=== PATIENT | male | born 1960 | race Caucasian/White ===

== ENCOUNTER 2016-06-15 05:43 | Inpatient (IN) | payer BC, OTHER ==
[2016-05-31 14:35] VITALS: BMI 37.0
--- NOTE | 2016-05-31 14:57 | PAT Medication Instructions ---
Service Date May 31, 2016. Current Home Medication List Alfuzosin Hcl (Uroxatral), 10 MG PO QAM Finasteride (Proscar), 5 MG PO QAM Lisinopril/Hctz (Zestoretic 20MG/12.5MG), 1 TAB PO QAM Metformin Hcl (Glucophage), 500 MG PO BID Multivitamin (Multivitamin), 1 TAB PO QAM Medication Instructions For Your Scheduled Surgery - Hold the following medications 48 hours prior to surgery: Metformin Hcl (Glucophage), 500 MG PO BID - Hold the following medications the morning of surgery: Multivitamin (Multivitamin), 1 TAB PO QAM Lisinopril/Hctz (Zestoretic 20MG/12.5MG), 1 TAB PO QAM - Take the following medications the morning of surgery with a sip of water OTHERWISE NOTHING TO EAT OR DRINK AFTER MIDNIGHT: Alfuzosin Hcl (Uroxatral), 10 MG PO QAM Finasteride (Proscar), 5 MG PO QAM If you have any questions please call us at [phone] or [phone] or [phone]
[2016-05-31 15:41] LABS: URINE APPEARANCE CLEAR (CLEAR); URINE BILIRUBIN NEG (NEG); URINE COLOR YELLOW; URINE NITRITE NEG (NEG); URINE SPECIFIC GRAVITY 1.019 (1.000-1.030); UROBILINOGEN NEG (NEG)
[2016-05-31 15:54] LABS: MANUAL MICROSCOPIC REQUIRED? NO; REVIEW REQ? NO
[2016-05-31 15:57] LABS: BUN/CREATININE RATIO 19.4 (10-20); CALCIUM 9.5 mg/dl (8.5-10.1); CREATININE 0.92 mg/dl (0.60-1.40); POTASSIUM 3.7 mmol/L (3.5-5.1)
[2016-05-31 16:05] LABS: BASO % 0.4 %; BASO ABS # 0.03 K/uL (0-0.2); COMPLETE YES; EOS % 1.5 %; IG% 0.6 %; LYMPH % 28.2 %; LYMPH ABS # 2.01 K/uL (1.2-3.4); MEAN CELL VOLUME 91.5 fL (80-100); MEAN CORPUSCULAR HEMOGLOBIN 32.7 pg (25-34); MEAN CORPUSCULAR HGB CONC 35.7 g/dl (32-36); MEAN PLATELET VOLUME 11.5 fL (7.4-10.4); NEUT % 61.3 %; PLATELET COUNT 168 K/uL (130-400); RED BLOOD COUNT 4.59 M/uL (4.7-6.1); WHITE BLOOD COUNT 7.13 K/uL (4.8-10.8)
[~2016-06-15] VITALS: Ht 177.8 cm; Wt 118.9 kg
[2016-06-15] VITALS (10 sets, daily range): BP systolic 108–141; BP diastolic 62–83; PULSE 84–108; TEMP 36.5–37; O2SAT 93–98; Ht 177.8 cm; Wt 118.9 kg
[~2016-06-15 05:43] MED LIST: ALFU10TA30 PO; FINA5TAB PO; GLC/500 PO; LISI-787 PO; MULT-506 PO
[2016-06-15] MEDS ORDERED: CEFAZOLIN 2000 MG/60 ML D5W IV SCH (06:00)
[2016-06-15] MEDS ORDERED: LACTATED RINGER'S 1000ML 500 ML IV ONE (06:00)
[2016-06-15] MEDS ORDERED: LACTATED RINGER'S 1000ML 1,000 ML IV SCH ×2 (06:00)
[2016-06-15] MEDS ORDERED: HEPARIN SOD 5000 UNIT/0.5 ML CARP SQ SCH (06:00)
[2016-06-15] MEDS ORDERED: MIDAZOLAM HCL 1 MG/ML 2ML VIAL ONE (06:38)
[2016-06-15] MEDS ORDERED: LIDOCAINE HCL 2% 2 ML VIAL (20MG/ML) ONE (06:38)
[2016-06-15] MEDS ORDERED: FENTANYL CITRATE INJ 50 MCG/1 ML 2 ML VIAL ONE (06:38)
[2016-06-15] MEDS ORDERED: ONDANSETRON INJ 2 MG/ML 2 ML VIAL ONE ×2 (06:38→10:43)
[2016-06-15] MEDS ORDERED: ROCURONIUM BROMIDE 10 MG/ML 5 ML VIAL ONE ×2 (06:38→10:14)
[2016-06-15] MEDS ORDERED: DEXAMETHASONE SOD INJ 4 MG/ML VIAL ONE (06:38)
[2016-06-15] MEDS ORDERED: BUPIVACAINE 0.5 % 5 MG/1 ML MPF 30ML VIAL ONE (06:53)
--- NOTE | 2016-06-15 07:09 | History & Physical Bridge Note ---
H&P Re-Evaluation Bridge Note: I have examined the patient, reviewed the History & Physical and in the interval since the performance of the History & Physical I have noted the following changes of clinical significance: No changes noted
[2016-06-15] MEDS ORDERED: PHENYLEPHRINE 100MCG/ML 5ML SYR IV PRN (07:15)
[2016-06-15] MEDS ORDERED: EpHEDrine SULFATE INJ 50 MG/ML AMP IV PRN (07:15)
[2016-06-15] MEDS ORDERED: ONDANSETRON INJ 2 MG/ML 2 ML VIAL IV PRN ×2 (07:15→11:15)
[2016-06-15] MEDS ORDERED: ATROPINE SULFATE 0.1 MG/ML 5ML SYR IV PRN (07:15)
[2016-06-15] MEDS ORDERED: HYDROmorphone INJ 2 MG/ML SYR/VIAL IV PRN (07:15)
[2016-06-15] MEDS ORDERED: EpHEDrine SULFATE INJ 50 MG/ML AMP ONE (08:28)
[2016-06-15] MEDS ORDERED: EpHEDrine SULFATE 50MG/5ML SYR ONE ×2 (08:28→10:43)
[2016-06-15] MEDS ORDERED: MoRPHine SULFATE PF 1 MG/ML 10 ML AMP/VIAL ONE (09:56)
[2016-06-15] MEDS ORDERED: FLOSEAL HEMOSTATIC MATRIX 10ML TOP ONE (10:30)
[2016-06-15] MEDS ORDERED: SURGICEL ABSORB HEMOSTAT 2IN X 14IN TOP ONE (10:30)
[2016-06-15] MEDS ORDERED: GLYCOPYRROLATE INJ 0.2 MG/ML VIAL ONE (10:43)
--- NOTE | 2016-06-15 11:08 | [facility] Post Operative Brief Note ---
Immediate Operative Summary Operative Date Jun 15, 2016. Pre-Operative Diagnosis cT1c Reny 3+3 Prostate Cancer Post-Operative Diagnosis Same as preop Procedure(s) Performed Laparoscopic Radical Retropubic Prostatectomy Robot Assist Surgeon Dr. Rachel Boyce Mathematics Professor Surgeon(s) Celeste Raines PA-C Estimated Blood Loss 150 ml Findings Watertight anastomosis, ? residual tissue at apex resected Specimens A. Prostate and Seminal Vesicles B. Periprostatic Fat C. Apical Margin D. Bladder Neck Margin Drains 18 fr fischer, 10 cc, #10 BRISEYDA drain Anesthesia GAET + local Complication(s) None Disposition Recovery Room / PACU
[2016-06-15] MEDS ORDERED: KETOROLAC TROMETHAMINE 15 MG/ML VIAL IV PRN (11:15)
[2016-06-15] MEDS ORDERED: HYDROmorphone INJ 1 MG/ML SYR IV PRN (11:15)
[2016-06-15] MEDS ORDERED: OXYCODONE/ACETAMINOPHEN 7.5-325 TAB PO PRN (11:15)
[2016-06-15] MEDS ORDERED: OXYBUTYNIN CHLORIDE 5 MG TAB PO PRN (11:15)
[2016-06-15] MEDS ORDERED: PHARMACY GLYCEMIC MGMT CONSULT SCH (11:35)
[2016-06-15 11:36] LABS: HEMATOCRIT 40.4 % (42-52); MEAN CELL VOLUME 91.2 fL (80-100); MEAN CORPUSCULAR HEMOGLOBIN 33.4 pg (25-34); MEAN PLATELET VOLUME 11.4 fL (7.4-10.4); PLATELET COUNT 154 K/uL (130-400); RED BLOOD COUNT 4.43 M/uL (4.7-6.1); WHITE BLOOD COUNT 9.49 K/uL (4.8-10.8)
[2016-06-15 11:40] LABS: MEAN CORPUSCULAR HGB CONC 36.6 g/dl (32-36)
--- NOTE | 2016-06-15 11:54 | OPERATIVE REPORT ---
DATE OF OPERATION: 06/15/2016 PREOPERATIVE DIAGNOSIS: [place] 3+3 prostate cancer. POSTOPERATIVE DIAGNOSIS: Same. PROCEDURE: Robot-assisted laparoscopic radical retropubic prostatectomy with bilateral nerve sparing dissection. SURGEON: Dr. Ever Boyce. CLINICAL WRITER: ANDREWS Rondon. ANESTHESIA: General anesthesia with endotracheal intubation plus local at port sites. ESTIMATED BLOOD LOSS: 150 mL. IV FLUIDS: 2 liters of crystalloid. FINDINGS: Watertight anastomosis with bilateral nerve sparing dissection, questionable capsular violation on the level of the right apex reresected to ensure a negative margin. DRAINS LEFT IN PLACE: Include an 18 Estonian Aguirre catheter to gravity drainage and #10 BRISEYDA drain in the left lower quadrant. SPECIMENS SENT TO PATHOLOGY: Periprostatic fat, prostate plus seminal vesicles, apical margin tissue and bladder neck margin. BRIEF HISTORY: Mr. Garcia is a pleasant 56-year-old male with a history of low grade Reny 3+3 prostate cancer who entered an active surveillance protocol over the summer of 2014. His repeat 1-year anniversary biopsy demonstrated continued low grade disease but in greater amounts. After discussion of risks and benefits of various forms of management, he has decided upon a robotic prostatectomy to manage his disease. Please see H\T\P for further details. Intravenous cephalosporins were provided for antibiotic coverage and subcutaneous heparin as well as SCDs for DVT prophylaxis. PROCEDURE: The patient was properly identified and brought to the operative suite. After identification and appropriate consent on the chart, general anesthesia with endotracheal intubation was initiated. The patient was prepped and draped in standard fashion for this procedure. methods time analyst-out procedure was followed. All port sites were anesthetized with local prior to incision. Supraumbilical port was made and abdomen was entered under direct visualization using a 0 degree lens and visual obturator. Abdomen was insufflated to 15 mmHg and ports were placed for a 4th arm robotic template including 2 left-sided 7 mm ports, 1 right-sided 7 mm port and a 5 and 12 mm team assistant port. Bladder was dropped down to the level of the pubic bone and prostate was defatted. The fat was removed and sent for pathologic analysis. Endopelvic fascia was sharply entered on both sides and a wide dorsal venous complex was skeletonized. This was controlled using 0 Vicryl suture on a CT1 needle in a [id number] fashion. Nerve sparing dissection was initiated on both sides laterally and up toward the level of the apex. A 30 degree down lens was then placed and attention was turned to the bladder neck. This was placed on traction using the 4th arm and bluntly dissected down to the level of the Aguirre catheter. The patient was noted to have significant trilobar hypertrophy, lateral greater than median which required extra caution at the time of dissection to avoid a widely spatulated bladder neck. Methylene blue was provided for identification of the ureteral orifices, which were noted to be well removed from the plane of dissection. After the prostatic hypertrophy was bypassed the bladder were neck was dropped at its posterior aspect in the midline down to the level of the seminal vesicles and vas deferens in the midline. The bladder and prostatic pedicles were controlled using bipolar and Weck clips as necessary. Care being taken to avoid any violation of the bladder with a Weck clip in place. No evidence of bladder perforation or other significant worrisome abnormalities were appreciated. Some thinned out mucosa at the level of the bladder neck was removed and sent as bladder neck margin. Bladder neck aperture was sufficiently small to not require reconstruction. After the pedicles had been somewhat released the vas deferens was circumscribed and divided in the midline. The seminal vesicles were dissected free in their entirety. Of note, thickened tissue in all planes surrounding the prostate gland, likely due to longstanding BPH was appreciated. Cold scissors were used to drop the rectum in the midline up to the level of the apex of the prostate and a nerve sparing dissection was carried out on both sides. Again, friable tissue at the level of the neurovascular bundles was noted. After the dissection had been carried up to its limited level of the apex attention was turned to the dorsal venous complex which was divided using hot scissors. Urethra was skeletonized. The apex of the prostate was noted to be inflamed and impacted around the area of the urethra and cautious dissection was required to separate the apex of the urethra, the urethra itself and the dorsal venous complex. After this was completed, a question of capsular violation on the right anterior prostate was appreciated. Rectourethralis fibers were divided as well as the remaining nerve sparing dissection was carried out. Prostate was removed from the pelvis and inspected. There was again a question of capsular violation. Some suspicious tissue at the level of the apex around the urethra was divided free until a clean urethra, dorsal vein, rectourethralis and pelvic structures were appreciated. This was sent as an apical margin and was felt likely to represent the residual tissue from the prostate. After this was complete, good hemostasis was appreciated at the level of the pelvis. No other residual abnormal tissue was appreciated. Prostate had been placed within an EndoCatch bag for retrieval at the end of the case once it was dissected free. A circumferential running anastomosis using a double armed V-Loc suture was performed excellent apposition of the urethra and bladder neck. Again, ureters were noted to be well removed from the area of dissection. In the anterior aspect a small gap in the bladder neck was oversewn. The 18 Estonian silicone Aguirre catheter was visualized entering the bladder prior to completion of closure. Ten mL of sterile water were placed in the balloon. This was irrigated with greater than 120 mL of sterile irrigant with no evidence of leaks. Of note, prior to completion of the patient's closure the rectum was insufflated under saline irrigation with no evidence of any rectal injury. The FloSeal tissue sealant was placed on the lateral aspects of the dissection for additional hemostasis. Fourth arm was removed and #10 BRISEYDA drain was brought in via the fourth arm port. This was placed within the pelvis while avoiding placing it directly over the anastomosis. Robotic instruments were removed and the robot was dedocked. The string to the EndoCatch bag was brought up through the supraumbilical port. This was enlarged sufficiently to allow for removal of the specimen bag without resistance. Ports were removed and the supraumbilical incision was closed using 0 Vicryl suture on a UR-6 needle. Drain was secured in place using a 2-0 silk. Monocryl was used at the level of the skin as well as Dermabond dressings. BRISEYDA was placed to bulb suction. Anesthesia was reversed and the patient was transferred to recovery room in stable condition. FOLLOW-UP CARE: The patient will be admitted to the floor for standard postoperative management. I attest to the content of the Intraoperative Record and any orders documented therein. Any exceptio ns are noted below.
[2016-06-15 12:00] LABS: BUN/CREATININE RATIO 13.1 (10-20); CALCIUM 8.7 mg/dl (8.5-10.1); POTASSIUM 3.5 mmol/L (3.5-5.1)
--- NOTE | 2016-06-15 12:44 | Pharmacy Progress Note ---
Glycemic Control Intl Consult Date of Service Jun 15, 2016. Scope Glycemic Pharmacist consulted by ANDREWS Boyer on 06/15/16 for glycemic control and to write orders per [facility] inpatient glycemic control protocol Objective Weight (Kilograms): 118.900 Accuchecks BSG (last 24hrs): Test 06/15/16 06:01 06/15/16 11:15 06/15/16 11:28 Bedside Glucose 114 mg/dl (70-99) 133 mg/dl (70-99) Random Glucose 145 mg/dl (70-99) Laboratory Data (last 24hrs) Test 06/15/16 11:28 Anion Gap 7.0 mmol/L BUN/Creatinine Ratio 13.1 Blood Urea Nitrogen 13 mg/dl Creatinine 1.00 mg/dl Potassium Level 3.5 mmol/L Sodium Level 135 mmol/L White Blood Count 9.49 K/uL Recent Pertinent Medications Outpatient Anti-diabetic Regimen: * Metformin 500mg BIDM * No A1c to evaluate. Will order with tomorrow's AM labs. Risk Factors for Insulin Resistance: * Steroids: DXM 8mg IV intraop * Infection: Ancef periop, surgical prophylaxis * IVF:LR at 125 ml/hr * Recent Surgery: POD0, s/p prostatectomy * Diet: clears Assessment & Plan ASSESSMENT: * ADA & AACE recommend a goal blood sugar range 140-180 mg/dl for the majority of critically ill & non-critically ill patients. However, more stringent targets may be selected in individual cases. * 56 yo male with prostate CA admitted today s/p prostatectomy done by Dr. Boyce. * He is on Metformin as an outpatient. No A1c on file to evaluate level of control on this regimen. Will place Metformin on hold during admission d/t increased risk for drug interactions, difficulty titrating, and variability of acute setting. * Consider restarting 1-2 days prior to discharge to aid in transition back to home DM regimen. * Pt was given a single dose of DXM IV intraoperatively which may lead to hyperglycemia subsequently. * AM fasting BSG was 114 mg/dl. I suspect this pt will respond nicely to insulin therapy. I am not convinced he will require basal insulin, however, with DXM on board he may require a single dose to combat long acting steroid. I do not suspect ongoing basal insulin will be necessary. * Will initiate Novolog considering weight based dosing. PLAN FOR INPATIENT GLYCEMIC CONTROL: * Start Lantus x 1 this evening: * BSG 180 mg/dl and below: 0 units * BSG 181 mg/dl and above: 12 units * Novolog ACHS * Start correction factor of 25 mg/dl/unit * Start carb ratio of 1 unit per 10 grams CHO consumed * Set goal range to Low 140 mg/dL - High 180 mg/dL * Please note that the plan above was derived based on current level of insulin resistance and hospital stress. These recommendations are appropriate for inpatient admission only. Plan of care upon discharge will need to be reassessed to avoid potential outpatient hypo/hyperglycemia. Thank you.
[2016-06-15] MEDS ORDERED: DEXTROSE 50% 50 ML SYR IV PRN (13:00)
[2016-06-15] MEDS ORDERED: GLUCAGON FOR INJ 1 MG VIAL SQ PRN (13:00)
[2016-06-15] MEDS ORDERED: GLUCOSE 10 TABS/TUBE PO PRN (13:00)
[2016-06-15] MEDS: INSULIN ASPART 100 UNITS/ML 3 ML PEN SC SCH ×3 (13:00→20:52)
[2016-06-15] MEDS ORDERED: GLUCOSE 40% GEL 15 GM TUBE PO PRN (13:00)
--- NOTE | 2016-06-15 13:12 | Anesthesiology Progress Note ---
Anesthesia Post Op Note Date & Time Jun 15, 2016 at 13:12 Vital Signs Pain Intensity: 0.0 Vital Signs Past 12 Hours Date Time Temp Pulse Resp B/P Pulse Ox O2 Delivery O2 Flow Rate FiO2 06/15/16 12:42 99 16 113/67 97 Nasal Cannula 2.0 06/15/16 12:15 98 Nasal Cannula 2.0 06/15/16 12:15 Nasal Cannula 2.0 06/15/16 12:15 36.6 93 16 121/74 98 Nasal Cannula 2.0 06/15/16 12:00 37 94 20 121/71 97 Nasal Cannula 2 Mask 06/15/16 11:50 36.8 93 20 118/73 97 Nasal Cannula 2 Mask 06/15/16 11:40 97 20 116/79 97 Nasal Cannula 2 06/15/16 11:30 96 20 117/67 99 Mask 10 06/15/16 11:20 101 20 105/59 99 Mask 10 06/15/16 11:13 36.1 100 14 103/67 97 Mask 10 06/15/16 06:15 36.7 102 22 141/83 93 Room Air Notes Mental Status: alert / awake / arousable, participated in evaluation Pt Amnestic to Procedure: Yes Nausea / Vomiting: adequately controlled Pain: adequately controlled Airway Patency, RR, SpO2: stable & adequate BP & HR: stable & adequate Hydration State: stable & adequate Anesthetic Complications: no major complications apparent
[2016-06-15] MEDS ORDERED: PNEUMOCOCCAL POLYSACCHARIDES 25 MCG/0.5 ML VIAL/SYR IM. ONE (13:45)
[2016-06-15] MEDS ORDERED: PNEUMOCOCCAL ADMINISTRATION CHARGE ONE (13:45)
[2016-06-15] MEDS: LACTATED RINGER'S 1000ML 1,000 ML IV SCH ×2 (13:52→18:02)
[2016-06-15] MEDS ORDERED: ACETAMINOPHEN 500 MG TAB PO SCH (14:00)
[2016-06-15] MEDS: CEFAZOLIN IV 2,000 MG in DEXTROSE 5% 50ML 50 ML IV SCH ×2 (15:37→23:26)
[2016-06-15] MEDS ORDERED: LANTUS PER UNIT CHARGE SQ SCH (17:00)
[2016-06-15] MEDS: DOCUSATE SODIUM 100 MG CAP PO SCH (20:52)
[2016-06-15] MEDS: HEPARIN SOD 5000 UNIT/0.5 ML CARP SQ SCH (20:55)
[2016-06-16] MEDS: LACTATED RINGER'S 1000ML 1,000 ML IV SCH (02:17)
[2016-06-16 03:25] VITALS: BP 118/74; PULSE 79; TEMP 36.9; O2SAT 93
[2016-06-16 07:10] LABS: BASO % 0.1 %; BASO ABS # 0.01 K/uL (0-0.2); COMPLETE YES; EOS % 0.4 %; HEMATOCRIT 39.9 % (42-52); IG% 0.2 %; LYMPH % 17.6 %; LYMPH ABS # 1.75 K/uL (1.2-3.4); MEAN CELL VOLUME 92.8 fL (80-100); MEAN CORPUSCULAR HEMOGLOBIN 32.3 pg (25-34); MEAN CORPUSCULAR HGB CONC 34.8 g/dl (32-36); MEAN PLATELET VOLUME 11.5 fL (7.4-10.4); MONO % 7.6 %; NEUT % 74.1 %; PLATELET COUNT 172 K/uL (130-400); WHITE BLOOD COUNT 9.96 K/uL (4.8-10.8)
[2016-06-16 07:30] VITALS: BP 110/71; PULSE 78; TEMP 37; O2SAT 96
[2016-06-16 07:42] LABS: BUN/CREATININE RATIO 11.8 (10-20); CALCIUM 8.7 mg/dl (8.5-10.1); CREATININE 0.85 mg/dl (0.60-1.40)
[2016-06-16 07:43] LABS: POTASSIUM 4.2 mmol/L (3.5-5.1)
[2016-06-16 08:06] VITALS: BP_SYST 118; BP_DIAS 81; BP_DIAS 88; PULSE 83; TEMP 36.8; O2SAT 95
[2016-06-16 08:07] LABS: ESTIMATED AVERAGE GLUCOSE 114 mg/dl; HA1C FLAG Normal (Normal)
[2016-06-16] MEDS: CEFAZOLIN IV 2,000 MG in DEXTROSE 5% 50ML 50 ML IV SCH (08:17)
[2016-06-16] MEDS: DOCUSATE SODIUM 100 MG CAP PO SCH (08:44)
[2016-06-16] MEDS: HEPARIN SOD 5000 UNIT/0.5 ML CARP SQ SCH (08:56)
[2016-06-16] MEDS ORDERED: LISINOPRIL/HCTZ 20/12.5MG TAB PO SCH (09:00)
[2016-06-16 09:55] VITALS: O2SAT 95
[2016-06-16] MEDS: INSULIN ASPART 100 UNITS/ML 3 ML PEN SC SCH ×2 (10:17→12:00)
--- NOTE | 2016-06-16 10:22 | Progress Note ---
Subjective Date of Service: Jun 16, 2016. Subjective Pt evaluation today including: conversation w/ patient, physical exam, chart review Voiding: fischer catheter in place 56 year old male with prostate cancer- s/p RALP. He is doing well post op Ambulating in hallway. Tolerating diet. BRISEYDA intact draining small amounts. Fischer intact- draining clear yellow urine. Abdominal incisions look well. AFVSS. Hemodynamically stable. Review of Systems Constitutional: No chills, No fever Eyes: No worsening of vision ENT: No hearing loss Respiratory: No cough, No dyspnea on exertion, No shortness of breath, No wheezing Cardiac: No chest pain Abdomen: No nausea, No pain, No vomiting Male : + see HPI Neurologic: No memory loss Psychiatric: No depression symptoms Heme: No abnormal bleeding/bruising Endo: No fatigue Skin: No rash Objective Vital Signs Date Time Temp Pulse Resp B/P Pulse Ox O2 Delivery O2 Flow Rate FiO2 06/16/16 09:55 95 Room Air 06/16/16 08:06 36.8 83 19 118/81 95 Room Air 118/88 06/16/16 07:30 37.0 78 16 110/71 96 Room Air 06/16/16 07:10 Room Air 06/16/16 03:25 36.9 79 14 118/74 93 Room Air 06/15/16 23:28 95 Room Air 06/15/16 23:23 37.0 86 14 126/73 95 Room Air 06/15/16 19:12 36.9 108 18 118/68 97 Room Air 06/15/16 16:30 97 Nasal Cannula 2.0 06/15/16 15:13 36.5 107 16 118/83 97 Nasal Cannula 2.0 06/15/16 14:10 84 18 117/77 98 Nasal Cannula 2.0 06/15/16 13:15 98 18 108/62 97 Nasal Cannula 2.0 06/15/16 12:42 99 16 113/67 97 Nasal Cannula 2.0 06/15/16 12:15 98 Nasal Cannula 2.0 06/15/16 12:15 Nasal Cannula 2.0 06/15/16 12:15 36.6 93 16 121/74 98 Nasal Cannula 2.0 06/15/16 12:00 37 94 20 121/71 97 Nasal Cannula 2 Mask 06/15/16 11:50 36.8 93 20 118/73 97 Nasal Cannula 2 Mask 06/15/16 11:40 97 20 116/79 97 Nasal Cannula 2 06/15/16 11:30 96 20 117/67 99 Mask 10 06/15/16 11:20 101 20 105/59 99 Mask 10 06/15/16 11:13 36.1 100 14 103/67 97 Mask 10 Physical Exam General Appearance: WD/WN, no apparent distress Eyes: normal inspection ENT: hearing grossly normal Neck: no JVD Respiratory/Chest: no respiratory distress, no accessory muscle use Extremities: normal range of motion, normal inspection, no pedal edema, no calf tenderness Neurologic/Psychiatric: alert, normal mood/affect, oriented x 3 Skin: normal color, warm/dry, no rash Laboratory Results Last 24 Hours Test 06/15/16 11:15 06/15/16 11:28 06/15/16 12:52 06/15/16 16:40 Bedside Glucose 133 mg/dl 137 mg/dl 132 mg/dl White Blood Count 9.49 K/uL Red Blood Count 4.43 M/uL Hemoglobin 14.8 g/dL Hematocrit 40.4 % Mean Corpuscular Volume 91.2 fL Mean Corpuscular Hemoglobin 33.4 pg Mean Corpuscular Hemoglobin Concent 36.6 g/dl RDW Standard Deviation 42.2 fL RDW Coefficient of Variation 12.7 % Platelet Count 154 K/uL Mean Platelet Volume 11.4 fL Sodium Level 135 mmol/L Potassium Level 3.5 mmol/L Chloride Level 99 mmol/L Carbon Dioxide Level 29 mmol/L Anion Gap 7.0 mmol/L Blood Urea Nitrogen 13 mg/dl Creatinine 1.00 mg/dl Est Creatinine Clear Calc Drug Dose 107.9 ml/min Estimated GFR () 97.8 Estimated GFR (Non- 84.4 BUN/Creatinine Ratio 13.1 Random Glucose 145 mg/dl Calcium Level 8.7 mg/dl Test 06/15/16 20:33 06/16/16 06:33 06/16/16 08:15 Bedside Glucose 147 mg/dl 122 mg/dl White Blood Count 9.96 K/uL Red Blood Count 4.30 M/uL Hemoglobin 13.9 g/dL Hematocrit 39.9 % Mean Corpuscular Volume 92.8 fL Mean Corpuscular Hemoglobin 32.3 pg Mean Corpuscular Hemoglobin Concent 34.8 g/dl Platelet Count 172 K/uL Mean Platelet Volume 11.5 fL Neutrophils (%) (Auto) 74.1 % Lymphocytes (%) (Auto) 17.6 % Monocytes (%) (Auto) 7.6 % Eosinophils (%) (Auto) 0.4 % Basophils (%) (Auto) 0.1 % Neutrophils # (Auto) 7.38 K/uL Lymphocytes # (Auto) 1.75 K/uL Monocytes # (Auto) 0.76 K/uL Eosinophils # (Auto) 0.04 K/uL Basophils # (Auto) 0.01 K/uL RDW Standard Deviation 44.0 fL RDW Coefficient of Variation 12.9 % Immature Granulocyte % (Auto) 0.2 % Immature Granulocyte # (Auto) 0.02 K/uL Sodium Level 137 mmol/L Potassium Level 4.2 mmol/L Chloride Level 100 mmol/L Carbon Dioxide Level 30 mmol/L Anion Gap 7.0 mmol/L Blood Urea Nitrogen 10 mg/dl Creatinine 0.85 mg/dl Est Creatinine Clear Calc Drug Dose 126.9 ml/min Estimated GFR () 113.7 Estimated GFR (Non- 98.1 BUN/Creatinine Ratio 11.8 Random Glucose 113 mg/dl Estimated Average Glucose 114 mg/dl Hemoglobin A1c 5.6 % Calcium Level 8.7 mg/dl Assessment and Plan s/p RALP He is doing well post op. Plan for d/c after lunch if he is tolerating po well. D/C BRISEYDA and IVF after lunch prior to discharge. Scripts on chart for Cipro, oxybutynin, percocet, and colace.
[2016-06-16] MEDS ORDERED: DTR5 PO (10:26)
[2016-06-16] MEDS ORDERED: CLC100 PO (10:26)
[2016-06-16] MEDS ORDERED: CIPR-255 PO (10:26)
[2016-06-16] MEDS ORDERED: OXYC7.5T62 PO (10:26)
--- NOTE | 2016-06-16 10:28 | Discharge Instructions ---
Discharge Instructions Admission Reason for Admission: Prostate Cancer Discharge Discharge Diagnosis / Problem: Prostate Cancer Discharge Goals Goal(s): Decrease discomfort, Improve function, Prevent Disease Progression Activity Recommendations Activity Limitations: per Instructions/Follow-up section . Instructions / Follow-Up Instructions / Follow-Up 1. Do not lift >15lbs x 6 weeks. 2. No heavy exercise x 6 weeks. You may engage in light activity such as walking and stairs as tolerated. 3. No sexual intercourse until cleared by Dr. Boyce or Dr. Knapp. 4. Do not drive x [address] while taking narcotics. 5. Finish all of the antibiotic you have been prescribed. 6. Immediately call our office at [phone] if your catheter is removed for any reason. 7. Follow-up as scheduled. Please call our office at [phone] if you need to reschedule for any reason. . Current Hospital Diet Hospital Diet(s): Regular Diet Discharge Diet Recommended Diet: Regular Diet Procedures Procedures Performed: Laparoscopic Radical Retropubic Prostatectomy Robot Assist Pending Studies Studies pending at discharge: no Laboratory Results Hemoglobin A1c Test 06/16/16 06:33 Range/Units Estimated Average Glucose 114 mg/dl Hemoglobin A1c 5.6 4.5-5.6 % Medical Emergencies . Who to Call and When: Medical Emergencies: If at any time you feel your situation is an emergency, please call 911 immediately. . Non-Emergent Contact Non-Emergency issues call your: Primary Care Provider, Urologist Call Non-Emergent contact if: temperature is above 101.5 . . "Provider Documentation" section prepared by Praveena De La Paz. VTE Core Measure Inpt VTE Proph given/why not?: Unfractionated heparin SQ, SCD's
[2016-06-16 13:32] VITALS: BP 118/88; PULSE 83; TEMP 36.8; O2SAT 95
--- NOTE | 2016-06-22 17:37 | DISCHARGE SUMMARY ---
ADMITTING DIAGNOSIS: Reny 3+3 adenocarcinoma of the prostate. DISCHARGE DIAGNOSIS: Same. PROCEDURES OVER THE COURSE OF ADMISSION: Include a robot-assisted laparoscopic radical retropubic prostatectomy on 06/15/2016. COMPLICATIONS OVER THE COURSE OF ADMISSION: None. ADMITTING ATTENDING: Dr. Ever Boyce. BRIEF HISTORY OF PRESENT ILLNESS: Mr. Garcia is a pleasant 56-year-old male with a diagnosis [place] 3+3 adenocarcinoma of the prostate, previously on active surveillance, who opted for intervention due to increase in his cancer volume. Please see H\T\P for further details. He is being admitted for surgical management in the form of robotic prostatectomy. HOSPITAL COURSE: The patient was admitted after an uncomplicated robotic prostatectomy on 06/15/2016. Please see operative report for further details. He was admitted to the [facility] overnight and activity and diet were rapidly advanced. By postoperative day #1, he was ambulatory in the hallways, comfortable with oral pain medication, and tolerating a regular diet. A BRISEYDA drain was putting minimal output and labs were acceptably stable. The patient was considered stable for discharge home with a Aguirre catheter in place. Please see progress notes for further details. DISCHARGE INSTRUCTIONS: Please see discharge medication list for prescriptions provided. Postoperative limitations reviewed with the patient prior to discharge home. Aguirre catheter to gravity drainage and leg bag. Outpatient appointments for a trial of void and pathology discussion reviewed. The patient is instructed to contact our service should he note any fevers, chills, nausea, vomiting or other significant difficulties in the postoperative period.
== END 2016-06-16 15:27 | disposition home or self-care (01) | DRG 708 ==
LOC: ENRESERVTM → ENRESERVDT → C.ACU 05:43 → C.MSN 11:12
PROVIDERS: ADMIT Urology; ATTEND Urology
PROC: 8E0W4CZ Robotic Assisted Procedure of Trunk Region, Percutaneous Endoscopic Approach (ICD-10-PCS; 2016-06-15)
PROC: 0VT04ZZ Resection of Prostate, Percutaneous Endoscopic Approach (ICD-10-PCS; principal; 2016-06-15 07:30)
DX: C61 Malignant neoplasm of prostate (principal); N40.0 Benign prostatic hyperplasia without lower urinary tract symptoms; E11.9 Type 2 diabetes mellitus without complications; R39.12 Poor urinary stream; Z79.899 Other long term (current) drug therapy; Z80.3 Family history of malignant neoplasm of breast; Z83.3 Family history of diabetes mellitus; Z80.42 Family history of malignant neoplasm of prostate

== ENCOUNTER → 2016-08-12 | Outpatient (CLI) | payer OTHER ==
[~2016-08-12] MED LIST changes: -ALFU10TA30 PO; +CIPR-255 PO; +CLC100 PO; +DTR5 PO; +OXYC7.5T62 PO
[2016-08-12 08:52] LABS: BLOOD UREA NITROGEN 18 mg/dl (7-18); BUN/CREATININE RATIO 21.2 (10-20); CREATININE 0.85 mg/dl (0.60-1.40)
[2016-08-12 08:56] LABS: PROSTATE SPECIFIC ANTIGEN 0.034 ng/ml (0.000-4.000)
== END | disposition home or self-care (01) ==
LOC: C.LAB 07:18
PROVIDERS: ATTEND Urology
DX: N40.0 Benign prostatic hyperplasia without lower urinary tract symptoms (principal)

== ENCOUNTER → 2016-11-04 | Outpatient (CLI) | payer OTHER ==
[2016-11-04 11:01] LABS: BLOOD UREA NITROGEN 15 mg/dl (7-18); BUN/CREATININE RATIO 15.8 (10-20); CREATININE 0.94 mg/dl (0.60-1.40)
[2016-11-04 11:08] LABS: PROSTATE SPECIFIC ANTIGEN 0.032 ng/ml (0.000-4.000)
== END | disposition home or self-care (01) ==
LOC: C.LAB 09:38
PROVIDERS: ATTEND Urology
DX: I10 Essential (primary) hypertension (principal); R39.12 Poor urinary stream

== ENCOUNTER → 2017-01-29 | Outpatient (CLI) | payer OTHER ==
[2017-01-29 11:01] LABS: BLOOD UREA NITROGEN 16 mg/dl (7-18); BUN/CREATININE RATIO 17.9 (10-20); CREATININE 0.89 mg/dl (0.60-1.40)
[2017-01-29 11:05] LABS: PROSTATE SPECIFIC ANTIGEN 0.036 ng/ml (0.000-4.000)
== END | disposition home or self-care (01) ==
LOC: C.LAB 09:18
PROVIDERS: ATTEND Urology
DX: R39.12 Poor urinary stream (principal)

== ENCOUNTER → 2017-06-19 | Outpatient (CLI) | payer OTHER | END | disposition home or self-care (01) | LOC: C.LAB 16:45 | PROVIDERS: ATTEND Urology | DX: R97.20 Elevated prostate specific antigen [PSA] (principal) ==